=== PATIENT | male | born 1965 | race Caucasian/White ===

== ENCOUNTER 2019-04-27 07:54 | Outpatient (CLI) | payer MEDICARE, MEDICAID ==
[~2019-04-27 07:54] MED LIST: CARV6.252 PO; DIGO125T PO; FAMO-79 PO; FURO80TA77 PO; LOSA25TA2 PO; METO200T2 PO; POTA20TA6 PO; PRAV80TA2 PO; REGADENOSON 0.4 MG/5 ML SYRINGE ONE; SPIR25TA PO; WARF5TAB PO
== END 2019-04-27 23:59 | disposition home or self-care (01) ==
LOC: CFH 07:54
PROVIDERS: ATTEND Internal Medicine Cardiovascular Disease
DX: I21.19 ST elevation (STEMI) myocardial infarction involving other coronary artery of inferior wall (principal); I08.8 Other rheumatic multiple valve diseases
CPT/HCPCS: 78452; 93017; 93306; A9502; J2785